=== PATIENT | male | born 2000 | race Two or more races ===

== ENCOUNTER 2020-01-11 08:55 | Outpatient (CLI) | payer OTHER ==
[~2020-01-11] VITALS: Ht 170.2 cm; Wt 76.2 kg
[2020-01-11] MEDS ORDERED: CONCERTA36 MG (17:49)
[2020-01-11] MEDS ORDERED: BENADRYL25 MG (17:49)
[2020-01-11] MEDS ORDERED: RISPERDAL1 MG (17:49)
== END 2020-01-11 09:20 | disposition home or self-care (01) ==
LOC: OFIC 805 08:55
PROVIDERS: ATTEND Otolaryngology Otology & Neurotology
DX: H91.8X3 Other specified hearing loss, bilateral (principal)

== ENCOUNTER → 2020-02-15 | Outpatient (CLI) | payer OTHER ==
[~2020-02-15] MED LIST: BENADRYL25 MG; CONCERTA36 MG; RISPERDAL1 MG
== END | disposition home or self-care (01) ==
LOC: OFIC 805 10:00
PROVIDERS: ATTEND Otolaryngology Otology & Neurotology
DX: H91.8X3 Other specified hearing loss, bilateral (principal)